=== PATIENT | male | born 1935 | race Hispanic/Latino ===

== ENCOUNTER 2024-10-14 10:56 | Outpatient (CLI) | payer OTHER ==
[2024-10-14 11:40] LABS: Hematocrit 41.2 % (38.8-50.0); Hemoglobin 13.5 g/dL (13.5-17.5)
[2024-10-14 12:30] LABS: Anion Gap 17 mmol/L (10-20); BUN (Urea Nitrogen) 18 mg/dL (8.4-25.7); Calc. Creatinine Clearance 0 mL/min (70-130); Calcium 9.2 mg/dL (7.8-10.44); Carbon Dioxide 20 mmol/L (23-31); Chloride 108 mmol/L (98-107); Glucose 170 mg/dL (83-110); Potassium 4.0 mmol/L (3.5-5.1); Sodium 141 mmol/L (136-145)
== END 2024-10-14 10:57 | disposition home or self-care (01) ==
LOC: CSHLAB 10:56
PROVIDERS: ATTEND Otolaryngology Plastic Surgery within the Head & Neck
DX: Z01.818 Encounter for other preprocedural examination (principal); H90.3 Sensorineural hearing loss, bilateral; H72.92 Unspecified perforation of tympanic membrane, left ear; R94.31 Abnormal electrocardiogram [ECG] [EKG]
CPT/HCPCS: 80048; 85014; 85018; 93005; 93010

== ENCOUNTER 2025-02-04 13:43 | Outpatient (CLI) | payer OTHER ==
[2025-02-04 14:25] LABS: Hematocrit 39.4 % (38.8-50.0); Hemoglobin 13.2 g/dL (13.5-17.5)
[2025-02-04 14:41] LABS: Anion Gap 15 mmol/L (10-20); BUN (Urea Nitrogen) 12 mg/dL (8.4-25.7); Calc. Creatinine Clearance 0 mL/min (70-130); Calcium 9.4 mg/dL (7.8-10.44); Carbon Dioxide 19 mmol/L (23-31); Chloride 109 mmol/L (98-107); Glucose 171 mg/dL (83-110); Potassium 3.9 mmol/L (3.5-5.1); Sodium 139 mmol/L (136-145)
== END 2025-02-04 13:44 | disposition home or self-care (01) ==
LOC: CSHLAB 13:43
PROVIDERS: ATTEND Otolaryngology Plastic Surgery within the Head & Neck
DX: Z01.812 Encounter for preprocedural laboratory examination (principal); H90.3 Sensorineural hearing loss, bilateral; H72.92 Unspecified perforation of tympanic membrane, left ear
CPT/HCPCS: 80048; 85014; 85018

== ENCOUNTER 2025-02-10 05:44 | Day surgery (SDC) | payer OTHER ==
[2025-02-04 14:19] VITALS: BMI 31.6
[2025-02-10] MEDS ORDERED: Lidocaine 1% w/Epinephrine 1:200K 30 ML VIAL ONE (06:29)
[2025-02-10] MEDS ORDERED: PROPOFOL 20 ML ONE ×2 (07:32→07:33)
[2025-02-10] MEDS ORDERED: Rocuronium Bromide 10 MG/ML (10ML VIAL) ONE (07:33)
[2025-02-10] MEDS ORDERED: SUGAMMADEX SODIUM 200 MG/2 ML VIAL ONE ×2 (07:33→07:58)
[2025-02-10] MEDS ORDERED: CEFAZOLIN 2 GM VIAL ONE (07:39)
[2025-02-10] MEDS ORDERED: HYDROcodone/Acetaminophen 5/325 mg Tablet ONE (12:17)
== END 2025-02-10 13:00 | disposition home or self-care (01) ==
LOC: CSHSDC 05:44
PROVIDERS: ATTEND Otolaryngology Plastic Surgery within the Head & Neck
PROC: F0BZ09Z Cochlear Implant Rehabilitation Treatment using Cochlear Implant Equipment (ICD-10-PCS; principal; 2025-02-10)
DX: H90.3 Sensorineural hearing loss, bilateral (principal); H72.92 Unspecified perforation of tympanic membrane, left ear; H61.21 Impacted cerumen, right ear; I10 Essential (primary) hypertension; Z79.899 Other long term (current) drug therapy
CPT/HCPCS: 69930; J0169; J1100; J2704; L8614